=== PATIENT | male | born 1990 | race Native Hawaiian/Other Pacific Islander ===

== ENCOUNTER 2017-02-04 17:09 | Emergency (ER) | payer OTHER ==
[2017-02-04] MEDS ORDERED: Sodium Chloride 0.9% 1,000 ML IV STA ×2 (17:37→17:38)
--- NOTE | 2017-02-04 18:03 | ED PDOC ---
Syncope/Near Syncope/Dizzyness Time Seen by Provider: 02/04/17 17:20 Chief Complaint (Nursing): Dizziness/Lightheaded Chief Complaint (Provider): Dizziness/Weakness/Near Syncope History Per: Patient History/Exam Limitations: no limitations Onset/Duration Of Symptoms: Mins (just prior to arrival) Current Symptoms Are (Timing): Still Present Current Symptoms: nausea, slight chest pain, abdominal cramping, skin feels "flushed" Activity At Onset Of Symptoms: Exertional Activity (playing tennis) Seizure Or Post-ictal Symptoms: None Possible Causative Factor(s): Decreased PO Intake (dehydration), Other (heat exhaustion) Fall Associated With With Symptoms: No Severity: Moderate Pain Scale Rating Of: 0 Additional Complaint(s): Marilou Morley is a 26 year old [place] male, with no pertinent past medical history, who presents to the emergency department via EMS for the evaluation of a near syncopal episode, inclusive of dizziness and generalized weakness, that the patient began experiencing just prior to arrival while playing tennis. Associated nausea, slight chest discomfort, abdominal cramping, and skin feeling "flushed" are currently present. Of note, patient is currently not on any medications and has no known drug allergies. PMD: none specified - Risk Factors Risk Factors (Syncope): Pos: Exertional Syncope Neg: H/O Ventricular Arrhythmias, Known Coronary Artery Disease, H/O Severe Valvular Disease, H/O Congenital Heart Disease, Family History Of Sudden Past Medical History Reviewed: Historical Data, Nursing Documentation, Vital Signs Vital Signs: Last Vital Signs Temp 100.9 F H 02/04/17 17:57 Pulse 126 H 02/04/17 17:11 Resp 22 02/04/17 17:11 BP 120/65 02/04/17 17:11 Pulse Ox 98 02/04/17 17:11 - Medical History PMH: No Chronic Diseases - Surgical History Surgical History: No Surg Hx - Family History Family History: States: No Known Family Hx - Social History Current smoker - smoking cessation education provided: No Ex-Smoker (has not smoked in the last 12 months): No Alcohol: None Drugs: Denies - Allergies Allergies/Adverse Reactions: Allergies Allergy/AdvReac Type Severity Reaction Status Date / Time No Known Allergies Allergy Verified 02/04/17 17:10 Review of Systems ROS Statement: Except As Marked, All Systems Reviewed And Found Negative Cardiovascular: Positive for: Chest Pain (slight) Gastrointestinal: Positive for: Nausea, Abdominal Pain (cramping) Skin: Positive for: Other (feels "flushed") Neurological: Positive for: Weakness, Dizziness, Other (near syncope) Physical Exam - Reviewed Nursing Documentation Reviewed: Yes Vital Signs Reviewed: Yes - Physical Exam Appears: Positive for: Well (appears tired), Non-toxic, No Acute Distress Head Exam: Positive for: ATRAUMATIC, NORMOCEPHALIC Skin: Positive for: Normal Color, Warm (skin is flushed), Dry. Negative for: Rash Eye Exam: Positive for: EOMI, Normal appearance, PERRL Neck: Positive for: Normal, Painless ROM, Supple Cardiovascular/Chest: Positive for: Regular Rate, Rhythm. Negative for: Murmur Respiratory: Positive for: Normal Breath Sounds. Negative for: Respiratory Distress Gastrointestinal/Abdominal: Positive for: Normal Exam, Soft. Negative for: Tenderness Back: Positive for: Normal Inspection. Negative for: L CVA Tenderness, R CVA Tenderness Extremity: Positive for: Normal ROM. Negative for: Tenderness Neurologic/Psych: Positive for: Alert, Oriented. Negative for: Motor/Sensory Deficits - Laboratory Results Result Diagrams: 02/04/17 17:55 02/04/17 17:55 - ECG O2 Sat by Pulse Oximetry: 98 (RA) Pulse Ox Interpretation: Normal - Progress Re-evaluation Time: 21:40 Condition: Re-examined, Improved Medical Decision Making Medical Decision Makin:20 Initial Impression: 26 year old [place] male presents with symptoms of heat exhaustion and dehydration, pending a reevaluation. Initial Plan: * CBC * CMP * Creatine Phosphokinase * Magnesium * Phosphorous * Urinalysis * Sodium Chloride 0.9% 1,000 ml IV at 1,000 mls/hr (x2) * Reevaluation Scribe Attestation: Documented by Amrit Zamora, acting as a scribe for Wendy Porter MD. Provider Scribe Attestation: All medical record entries made by the Scribe were at my direction and personally dictated by me. I have reviewed the chart and agree that the record accurately reflects my personal performance of the history, physical exam, medical decision making, and the department course for this patient. I have also personally directed, reviewed, and agree with the discharge instructions and disposition. Disposition - Clinical Impression Clinical Impression: Heat exhaustion - Patient ED Disposition Is Patient to be Admitted: No Doctor Will See Patient In The: Office Counseled Patient/Family Regarding: Diagnosis, Need For Followup - Disposition Disposition: Routine/Home Disposition Time: 21:40 Condition: IMPROVED Instructions: Heat Exhaustion (ED) - POA Present On Arrival: None
[2017-02-04 18:07] LABS: BASO % 0.5 % (0.0-2.0); EOS # 0.1 K/uL (0.0-0.7); EOS % 1.8 % (0.0-4.0); HEMATOCRIT 47.1 % (35.0-51.0); LYMPH # 1.3 K/uL (1.0-4.3); LYMPH % 19.2 % (20.0-40.0); MEAN CELL VOLUME 88.8 fl (80.0-94.0); MEAN CORPUSCULAR HEMOGLOBIN 29.2 pg (27.0-31.0); MEAN CORPUSCULAR HGB CONC 32.9 g/dL (33.0-37.0); MONO # 0.5 K/uL (0.0-0.8); NEUT # 4.7 K/uL (1.8-7.0); NEUT % 70.5 % (50.0-75.0); RED CELL DISTRIBUTION WIDTH 13.1 % (11.5-14.5); WHITE BLOOD COUNT 6.6 K/uL (4.8-10.8)
[2017-02-04 18:15] LABS: ALB/GLOB RATIO 1.6 (1.0-2.1); ALKALINE PHOSPHATASE 40 U/L (38-126); ALT/SGPT 26 U/L (21-72); AST/SGOT 37 U/L (17-59); BILIRUBIN,TOTAL 0.9 mg/dl (0.2-1.3); BLOOD UREA NITROGEN 19 mg/dl (9-20); CALCIUM 9.8 mg/dL (8.4-10.2); CARBON DIOXIDE 15 mmol/L (22-30); CHLORIDE 106 mmol/L (98-107); GFR AFRICAN-AMERICAN > 60; GLUCOSE,RANDOM 141 mg/dL (75-110); MAGNESIUM 1.8 MG/DL (1.6-2.3); POTASSIUM 3.8 MMOL/L (3.6-5.0); SODIUM 140 mmol/l (132-148); TOTAL PROTEIN 7.9 G/DL (6.3-8.2)
[2017-02-04 18:16] LABS: PHOSPHOROUS 0.9 mg/dl (2.5-4.5)
[2017-02-04] MEDS ORDERED: Potassium & Sodium Phosphate PO STA (18:36)
[2017-02-04 18:43] VITALS: RESP 16
[2017-02-04 19:52] VITALS: BP 114/70; PULSE 88; TEMP 98.3
[2017-02-04 20:52] LABS: RBC URINE 5 /hpf (0-3); URINE BACTERIA RARE (<OCC); URINE BILIRUBIN NEGATIVE (NEGATIVE); URINE BLOOD LARGE (NEGATIVE); URINE COLOR STRAW (YELLOW); URINE GLUCOSE (UA) NEG (Normal); URINE KETONE TRACE mg/dL (NEGATIVE); URINE LEUKOCYTE ESTERASE SMALL Leu/uL (Negative); URINE PROTEIN 30 mg/dL (NEGATIVE); URINE UROBILINOGEN 0.2-1.0 mg/dL (0.2-1.0); WBC URINE 3 /hpf (0-5)
[2017-02-04 21:42] VITALS: O2SAT 98
--- NOTE | 2017-02-13 07:48 | CARD ---
APPROVED REPORT EKG Measurement Heart [id number] <Conclusion> Sinus tachycardia Otherwise normal ECG
== END 2017-02-04 20:00 | disposition home or self-care (01) ==
LOC: H.ER 17:09
DX: T67.5XXA Heat exhaustion, unspecified, initial encounter (principal); Z87.891 Personal history of nicotine dependence